=== PATIENT | female | born 1945 | race Hispanic/Latino ===

== ENCOUNTER 2022-07-25 09:45 | Outpatient (CLI) | payer MEDICARE, OTHER ==
[2022-07-25] MEDS ORDERED: Magnevist 469MG/ML 20 ML VIAL ONE (10:08)
== END 2022-07-25 09:46 | disposition home or self-care (01) ==
LOC: CSHMRI 09:45
PROVIDERS: ATTEND Radiology Radiation Oncology
DX: D32.9 Benign neoplasm of meninges, unspecified (principal); D32.0 Benign neoplasm of cerebral meninges
CPT/HCPCS: 70553; 82565